=== PATIENT | female | born 1940 | race Caucasian/White ===

== ENCOUNTER 2017-01-23 10:06 | Day surgery (SDC) | payer OTHER, MEDICARE ==
--- NOTE | ~2017-01-23 | EGD ---
EGD REPORT [facility] [address] [id number] NAME: FATIMAH ALLISON : [birth year] STATUS : [place] [facility] PAT#: [id number] AGE: 76 ADM/REG DATE : 01/23/17 MR#: [id number] REPORT SERV DATE: 01/23/17 DICTATED BY: MARY ANN ROCK DATE: 01/23/17 REPORT STATUS : Draft TRANSCRIBED BY: [facility] DATE: 01/23/17 Endoscopy Center Patient Name: Fatimah Allison Date of : 1940 Attending MD: MARY ANN ROCK MD Procedure Date No Time: 01/23/2017 Procedure: Colonoscopy Indications: Iron deficiency anemia, Weight loss, Incidental constipation noted, Last colonoscopy: September 2012 Referring MD: TERESA BALL MD, BERNA HOLLIS Medicines: Propofol per Anesthesia Complications: No immediate complications. Estimated blood loss: None. Procedure: Pre-Anesthesia Assessment: - After reviewing the risks and benefits, the patient was deemed in satisfactory condition to undergo the procedure. - Prior to the procedure, a History and Physical was performed, and patient medications and allergies were reviewed. The patient's tolerance of previous anesthesia was also reviewed. The risks and benefits of the procedure and the sedation options and risks were discussed with the patient. All questions were answered, and informed consent was obtained. Prior Anticoagulants: The patient has taken Eliquis, last dose was 2 days prior to procedure. ASA Grade Assessment: III - A patient with severe systemic disease. After reviewing the risks and benefits, the patient was deemed in satisfactory condition to undergo the procedure. After I obtained informed consent, the scope was passed under direct vision. Throughout the procedure, the patient's blood pressure, pulse, and oxygen saturations were monitored continuously. The CF [id number] was introduced through the anus and advanced to the cecum, identified by appendiceal orifice and ileocecal valve. The colonoscopy was performed without difficulty. The ileocecal valve and appendiceal orifice were photographed. The patient tolerated the procedure well. The quality of the bowel preparation was adequate. The bowel preparation used was polyethylene glycol (PEG). Scope withdrawal time was almost 7 minutes. Findings: The perianal and digital rectal examinations were normal. Pertinent negatives include normal sphincter tone. Non-bleeding internal hemorrhoids were found during retroflexion and EGD REPORT [address] [address] NAME: FATIMAH ALLISON : [birth year] STATUS : [place] [facility] [place] PAT#: [id number] AGE: 76 ADM/REG DATE : 01/23/17 MR#: [id number] REPORT SERV DATE: 01/23/17 DICTATED BY: MARY ANN ROCK DATE: 01/23/17 REPORT STATUS : Draft TRANSCRIBED BY: [facility] DATE: 01/23/17 were small and Grade I (internal hemorrhoids that do not prolapse). Multiple medium-mouthed diverticula were found in the sigmoid colon and in the descending colon. The exam was otherwise without abnormality. Impression: - Non-bleeding internal hemorrhoids. - Moderate diverticulosis in the sigmoid colon and in the descending colon. - The examination was otherwise normal. - Constipation. Recommendation: - Discharge patient to home (ambulatory). - High fiber diet indefinitely. - Continue present medications. - Resume Eliquis at prior dose today. - No further routine screening colonoscopy due to advanced age. - Return to GI clinic PRN. - Patient has a contact number available for emergencies. The signs and symptoms of potential delayed complications were discussed with the patient. Return to normal activities tomorrow. Written discharge instructions were provided to the patient. Procedure Code(s): --- Professional --- 15272, Colonoscopy, flexible, proximal to splenic flexure; diagnostic, with or without collection of specimen(s) by brushing or washing, with or without colon decompression (separate procedure) Diagnosis Code(s): --- Professional --- K64.0, First degree hemorrhoids K57.30, Diverticulosis of large intestine without perforation or abscess without bleeding D50.9, Iron deficiency anemia, unspecified R63.4, Abnormal weight loss CPT copyright 2013 [employer]. All rights reserved. The codes documented in this report are preliminary and upon nurses' association counselor review may be revised to meet current compliance requirements. MARY ANN ROCK MD 01/23/2017 12:02 PM This report has been signed electronically. EGD REPORT [facility] [address] [address] NAME: FATIMAH ALLISON : [birth year] [place]US : [place] [facility] PAT#: [id number] AGE: 76 ADM/REG DATE : 01/23/17 MR#: [id number] REPORT SERV DATE: 01/23/17 DICTATED BY: MARY ANN ORCK DATE: 01/23/17 REPORT STATUS : Draft TRANSCRIBED BY: [employer] DATE: 01/23/17 Number of Addenda: 0 Note Initiated On: 01/23/2017 11:22 AM Scope Withdrawal Time 0 hours 6 minutes 47 seconds [address] [id number]
--- NOTE | ~2017-01-23 | EGD ---
EGD REPORT [facility] [address] [address] NAME: FATIMAH ALLISON : 40 [place]US [place] [facility] [place] PAT#: [id number] AGE: 76 ADM/REG DATE : 01/23/17 MR#: [id number] REPORT SERV DATE: 01/23/17 DICTATED BY: MARY ANN ROCK DATE: 01/23/17 REPORT STATUS : Draft [facility]CRIB[facility]: [facility] DATE: 01/23/17 Endoscopy Center Patient Name: Fatimah Allison Date of : 1940 Attending MD: MARY ANN ROCK MD Procedure Date No Time: 01/23/2017 Procedure: Upper GI endoscopy Indications: Iron deficiency anemia, Heartburn, Weight loss Referring MD: TERESA BALL MD, BERNA HOLLIS Medicines: Propofol per Anesthesia Complications: No immediate complications. Estimated blood loss: None. Procedure: Pre-Anesthesia Assessment: - After reviewing the risks and benefits, the patient was deemed in satisfactory condition to undergo the procedure. - Prior to the procedure, a History and Physical was performed, and patient medications and allergies were reviewed. The patient's tolerance of previous anesthesia was also reviewed. The risks and benefits of the procedure and the sedation options and risks were discussed with the patient. All questions were answered, and informed consent was obtained. Prior Anticoagulants: The patient has taken no previous anticoagulant or antiplatelet agents. ASA Grade Assessment: III - A patient with severe systemic disease. After reviewing the risks and benefits, the patient was deemed in satisfactory condition to undergo the procedure. After obtaining informed consent, the endoscope was passed under direct vision. Throughout the procedure, the patient's blood pressure, pulse, and oxygen saturations were monitored continuously. The GIF [id number] was introduced through the mouth, and advanced to the jejunum. The upper GI endoscopy was accomplished without difficulty. The patient tolerated the procedure well. Findings: The examined esophagus was normal. Diffuse mild inflammation characterized by congestion (edema), erythema and granularity was found in the gastric antrum. Biopsies were taken with a cold forceps for histology. Estimated blood loss: none. The gastroesophageal junction (on retroflexion) was normal. The examined duodenum was normal. Biopsies were taken with a cold forceps for histology. Estimated blood loss: none. EGD REPORT [address] [address] NAME: FATIMAH ALLISON : [birth year] STATUS : REG [facility]#: [id number] AGE: 76 ADM/REG DATE : 01/23/17 MR#: [id number] REPORT SERV DATE: 01/23/17 DICTATED BY: MARY ANN ROCK DATE: 01/23/17 REPORT STATUS : Draft TRANSCRIBED BY: [employer] DATE: 01/23/17 Impression: - Normal esophagus. - Bile gastritis. Biopsied. - Normal gastroesophageal junction. - Normal examined duodenum. Biopsied. - GERD. Recommendation: - Discharge patient to home (ambulatory). - Return to previous diet. - Continue present medications. - Increase Prilosec (omeprazole) to 40 mg twice daily before breakfast and supper until completed and then begin Protonix (pantoprazole) 40 mg daily. - Await pathology results. - Perform a colonoscopy today. - Patient has a contact number available for emergencies. The signs and symptoms of potential delayed complications were discussed with the patient. Return to normal activities tomorrow. Written discharge instructions were provided to the patient. Procedure Code(s): --- Professional --- 20241, Esophagogastroduodenoscopy, flexible, transoral; with biopsy, single or multiple Diagnosis Code(s): --- Professional --- K29.60, Other gastritis without bleeding K21.9, Gastro-esophageal reflux disease without esophagitis D50.9, Iron deficiency anemia, unspecified R12, Heartburn R63.4, Abnormal weight loss CPT copyright 2013 [employer]. All rights reserved. The codes documented in this report are preliminary and upon medical reimbursement specialist review may be revised to meet current compliance requirements. MARY ANN ROCK MD 01/23/2017 11:43 AM This report has been signed electronically. Number of Addenda: 0 Note Initiated On: 01/23/2017 11:25 AM Scope Withdrawal Time 0 hours 0 minutes 0 seconds EGD REPORT [place] [address] [address] NAME: FATIMAH ALLISON : [birth year] STATUS : [place] [facility] [place] PAT#: [id number] AGE: 76 ADM/REG DATE : 01/23/17 MR#: [id number] REPORT SERV DATE: 01/23/17 DICTATED BY: MARY ANN ROCK DATE: 01/23/17 REPORT STATUS : Draft TRANSCRIBED BY: [employer] DATE: 01/23/17 [address] [id number]
[~2017-01-23 10:06] MED LIST: ACCURETI1 PO; ALLEGRA180 PO; C5 PO; COUMADIN4 MG PO; COUMADIN6 MG PO; EVISTA60 PO; GLUCPH PO; L40 PO; LOTEMAX OPH SUSP5 ML OPH; MULTIVIT/MIN PO; MURO1285% OPH; OMNIPRED1 % OPH; PREDFORTE OPH; PRILO PO; RESTASIS OPH; SUPER B COMP PO; TAMBOCOR PO; TOPXL25 PO; TOPXL50 PO; TYLENOL ARTH650 MG PO; VITAMIN D31000 UNIT PO; WELCHOL625 MG PO
== END 2017-01-23 23:59 | disposition home health service (06) ==
LOC: DMU 10:06
PROVIDERS: Internal Medicine Gastroenterology
PROC: 0DJD8ZZ Inspection of Lower Intestinal Tract, Via Natural or Artificial Opening Endoscopic (ICD-10-PCS; 2017-01-23)
PROC: 0DB68ZX Excision of Stomach, Via Natural or Artificial Opening Endoscopic, Diagnostic (ICD-10-PCS; principal; 2017-01-23 11:45)
PROC: 0DB98ZX Excision of Duodenum, Via Natural or Artificial Opening Endoscopic, Diagnostic (ICD-10-PCS; 2017-01-23 11:45)
DX: K29.50 Unspecified chronic gastritis without bleeding (principal); K64.0 First degree hemorrhoids; K57.30 Diverticulosis of large intestine without perforation or abscess without bleeding; K21.9 Gastro-esophageal reflux disease without esophagitis; I10 Essential (primary) hypertension; I48.91 Unspecified atrial fibrillation; M19.90 Unspecified osteoarthritis, unspecified site; E11.9 Type 2 diabetes mellitus without complications; G47.33 Obstructive sleep apnea (adult) (pediatric); Z88.8 Allergy status to other drugs, medicaments and biological substances; Z90.49 Acquired absence of other specified parts of digestive tract; Z98.41 Cataract extraction status, right eye; Z98.42 Cataract extraction status, left eye; Z98.890 Other specified postprocedural states
CPT/HCPCS: 82962; 88305